=== PATIENT | male | born 1995 | race Caucasian/White ===

== ENCOUNTER 2018-01-27 01:32 | Emergency (ER) | payer OTHER ==
[~2018-01-27] VITALS: Ht 180.3 cm; Wt 81.7 kg
[~2018-01-27 01:32] MED LIST: ALBU90OI INH; ALBU90OI6 INH; ALBU90OI61 INH; Bactrim Ds Tab1 EACH PO; CEPH250A PO; CEPH500 PO; DOXY100 PO; IBUP600 PO; NAPR500 PO; Naprosyn500 MG PO; Norco 10-325 T1 EACH PO; OXYACE5T PO; PENVK500 PO; PRED10 PO; PRED15SY; PRED15SY PO; SULTRIDS PO
[2018-01-27] MEDS ORDERED: Zithromax250 MG PO (03:00)
== END 2018-01-27 03:08 | disposition home or self-care (01) ==
LOC: ER 01:32
DX: H66.92 Otitis media, unspecified, left ear (principal); I10 Essential (primary) hypertension; Z88.0 Allergy status to penicillin; Z88.5 Allergy status to narcotic agent
CPT/HCPCS: 99282

== ENCOUNTER 2018-02-27 18:50 | Emergency (ER) | payer OTHER ==
[~2018-02-27] VITALS: Ht 180.3 cm; Wt 81.7 kg
[~2018-02-27 18:50] MED LIST changes: +Zithromax250 MG PO
== END 2018-02-27 20:47 | disposition home or self-care (01) ==
LOC: ER 18:50
DX: S90.31XA Contusion of right foot, initial encounter (principal); B30.9 Viral conjunctivitis, unspecified; W17.89XA Other fall from one level to another, initial encounter; Z88.0 Allergy status to penicillin; Z88.5 Allergy status to narcotic agent; I10 Essential (primary) hypertension
CPT/HCPCS: 73630; 99283

== ENCOUNTER → 2018-05-08 | Outpatient (CLI) | payer OTHER | END | disposition home or self-care (01) | LOC: LAB 10:24 → LAB SHORT 10:24 | DX: L08.9 Local infection of the skin and subcutaneous tissue, unspecified (principal) | CPT/HCPCS: 87070; 87205 ==

== ENCOUNTER 2019-05-22 20:28 | Emergency (ER) | payer OTHER ==
[~2019-05-22] VITALS: Ht 180.3 cm; Wt 86.2 kg
== END 2019-05-22 22:26 | disposition home or self-care (01) ==
LOC: ER 20:28
DX: S80.11XA Contusion of right lower leg, initial encounter (principal); X58.XXXA Exposure to other specified factors, initial encounter; Z88.0 Allergy status to penicillin; Z88.5 Allergy status to narcotic agent; I10 Essential (primary) hypertension
CPT/HCPCS: 90471; 90714; 93971; 99283-25

== ENCOUNTER 2020-04-15 16:49 | Emergency (ER) | payer OTHER ==
[~2020-04-15] VITALS: Ht 180.3 cm; Wt 81.7 kg
[2020-04-15] MEDS ORDERED: IBUP800 PO (18:35)
== END 2020-04-15 18:42 | disposition home or self-care (01) ==
LOC: ER 16:49
DX: S30.0XXA Contusion of lower back and pelvis, initial encounter (principal); Z88.0 Allergy status to penicillin; Z88.5 Allergy status to narcotic agent; W19.XXXA Unspecified fall, initial encounter
CPT/HCPCS: 72100; 99283-25